=== PATIENT | male | born 1955 | race Caucasian/White ===

== ENCOUNTER 2024-01-25 13:10 | Emergency (ER) | payer MEDICARE ==
[2024-01-25 14:02] LABS: BASOPHILS ABSOLUTE AUTO 0.07 K/uL (0.00-0.10); EOSINOPHILS ABSOLUTE AUTO 0.26 K/uL (0.00-0.40); EOSINOPHILS PERCENT AUTO 3.6 % (0.0-5.4); HEMATOCRIT 23.5 % (38.4-49.7); HEMOGLOBIN 8.1 g/dL (12.9-16.9); IMMATURE GRAN ABSOLUTE AUTO 0.05 K/uL (0.00-0.23); IMMATURE GRAN PERCENT AUTO 0.7 % (0.0-0.7); LYMPHOCYTES ABSOLUTE AUTO 0.77 K/uL (0.8-3.3); LYMPHOCYTES PERCENT AUTO 10.5 % (11.4-47.7); MEAN CORPUSCULAR HEMOGLOBIN 29.9 pg (31.6-35.5); MEAN CORPUSCULAR HGB CONC 34.5 g/dL (31.6-35.5); MEAN CORPUSCULAR VOLUME 86.7 fL (81.4-99.0); MONOCYTES ABSOLUTE AUTO 0.52 K/uL (0.20-0.90); MONOCYTES PERCENT AUTO 7.1 % (3.3-12.6); NEUTROPHILS ABSOLUTE AUTO 5.64 K/uL (1.0-7.6); NEUTROPHILS PERCENT AUTO 77.1 % (40.0-78.1); PLATELET COUNT,PLT 173 K/uL (130-375); RED BLOOD CELL COUNT 2.71 M/uL (4.14-5.76); WHITE BLOOD CELL COUNT,WBC 7.3 K/uL (3.2-11.0)
[2024-01-25 14:23] LABS: A/G RATIO 0.8 (1.2-2.2); ALANINE AMINOTRANSFERASE,ALT 28 U/L (12-78); ALBUMIN 2.8 g/dL (3.4-5.0); ALKALINE PHOSPHATASE 72 U/L (46-116); ANION GAP 15.8 mmol/L (5.0-14.0); ASPARTATE AMNIOTRANSFERASE,AST 14 U/L (15-37); BILIRUBIN TOTAL 0.7 mg/dL (0.2-1.0); BLOOD UREA NITROGEN,BUN 22 mg/dL (7-18); CALCIUM 8.9 mg/dL (8.5-10.1); CARBON DIOXIDE,CO2 23 mmol/L (21-32); CHLORIDE,CL 101 mmol/L (100-108); ESTIMATED GFR 82 mL/min (>60); GLUCOSE RANDOM 174 mg/dL (74-106); POTASSIUM,K 3.8 mmol/L (3.6-5.2); PROTEIN TOTAL,TP 6.2 g/dL (6.4-8.2); SODIUM,NA 136 mmol/L (140-148)
[2024-01-25 14:28] LABS: LACTIC ACID 1.6 mmol/L (0.4-2.0)
[2024-01-25] MEDS: Pantoprazole 40 MG Vial IVPUSH ONE (14:39)
[2024-01-25] MEDS: Sodium Chloride 0.9% 10 ML Syringe FLUSH PRN (14:41)
== END 2024-01-25 15:00 ==
LOC: JP.ED 13:10
DX: K92.2 Gastrointestinal hemorrhage, unspecified (principal); E78.00 Pure hypercholesterolemia, unspecified; I10 Essential (primary) hypertension; E11.9 Type 2 diabetes mellitus without complications; Z90.49 Acquired absence of other specified parts of digestive tract; Z79.82 Long term (current) use of aspirin; Z79.84 Long term (current) use of oral hypoglycemic drugs; Z79.899 Other long term (current) drug therapy; Z88.6 Allergy status to analgesic agent
CPT/HCPCS: 36415; 80053; 83605; 85025; 87040; 96374; 99285; J2470; J3490

== ENCOUNTER 2025-01-08 11:33 | Inpatient (IN) | payer MEDICARE, OTHER ==
[2025-01-08 12:49] LABS: CREATININE 1.6 mg/dL (0.7-1.3); EST CRCL DRUG DOSING (CG) 49.24 mL/min; ESTIMATED GFR 46 mL/min (>60)
[2025-01-08 12:50] LABS: BASOPHILS ABSOLUTE AUTO 0.04 K/uL (0.00-0.10); BASOPHILS PERCENT AUTO 0.4 % (0.1-1.3); EOSINOPHILS ABSOLUTE AUTO 0.03 K/uL (0.00-0.40); EOSINOPHILS PERCENT AUTO 0.3 % (0.0-5.4); IMMATURE GRAN ABSOLUTE AUTO 0.25 K/uL (0.00-0.23); IMMATURE GRAN PERCENT AUTO 2.3 % (0.0-0.7); LYMPHOCYTES ABSOLUTE AUTO 0.61 K/uL (0.8-3.3); LYMPHOCYTES PERCENT AUTO 5.7 % (11.4-47.7); MONOCYTES ABSOLUTE AUTO 0.78 K/uL (0.20-0.90); MONOCYTES PERCENT AUTO 7.3 % (3.3-12.6); NEUTROPHILS ABSOLUTE AUTO 8.94 K/uL (1.0-7.6); NEUTROPHILS PERCENT AUTO 84.0 % (40.0-78.1); PLATELET COUNT,PLT 83 K/uL (130-375); RED BLOOD CELL COUNT 3.84 M/uL (4.14-5.76); WHITE BLOOD CELL COUNT,WBC 10.7 K/uL (3.2-11.0)
[2025-01-08 12:53] LABS: APPEARANCE,URINE SLIGHTLY CLOUDY (CLEAR); GLUCOSE,URINE NEGATIVE (NEGATIVE); OCCULT BLOOD,URINE LARGE (NEGATIVE)
[2025-01-08 13:11] LABS: A/G RATIO 0.9 (1.2-2.2); ALANINE AMINOTRANSFERASE,ALT 76 U/L (12-78); ASPARTATE AMNIOTRANSFERASE,AST 49 U/L (15-37); BILIRUBIN TOTAL 2.7 mg/dL (0.2-1.0); BLOOD UREA NITROGEN,BUN 22 mg/dL (7-18); CARBON DIOXIDE,CO2 22 mmol/L (21-32); CHLORIDE,CL 95 mmol/L (100-108); GLUCOSE RANDOM 188 mg/dL (74-106); POTASSIUM,K 4.1 mmol/L (3.6-5.2); PROTEIN TOTAL,TP 6.5 g/dL (6.4-8.2); SODIUM,NA 128 mmol/L (140-148)
[2025-01-08 13:16] LABS: SQUAMOUS EPITHELIAL CELLS,UR FEW /HPF; UROTHELIAL CELLS,URINE NOT SEEN /HPF
[2025-01-08] MEDS: Sodium Chloride 0.9% 10 ML Syringe FLUSH ONE (13:37)
[2025-01-08] MEDS: Iopamidol 612 MG/ML 100 ML Bottle IV ONE (14:35)
[2025-01-08] MEDS ORDERED: Magnesium Hydroxide 400 MG/5 ML Susp 30 ML Cup PO PRN (16:43)
[2025-01-08] MEDS ORDERED: Sennosides/Docusate Sodium 50-8.6 MG Tab PO PRN (16:43)
[2025-01-08] MEDS ORDERED: Naloxone 0.4 MG/ML SDV IVPUSH PRN (16:43)
[2025-01-08] MEDS ORDERED: Ondansetron 4 MG Tab.DIS PO PRN (16:43)
[2025-01-08] MEDS ORDERED: Ondansetron 4 MG/2 ML SDV IV PRN (16:43)
[2025-01-08] MEDS: Magnesium Sulfate 2 GM/50 mL 2 GM in Premix Bag 1 BAG IV SCH (18:21)
[2025-01-08] MEDS: Lactobacillus Rhamnosus GG (Probiotic) Cap PO SCH (20:14)
[2025-01-09] MEDS: Diltiazem 25 MG/5 ML SDV IVPUSH ONE ×2 (00:44→03:11)
[2025-01-09] MEDS: Ketorolac 15 MG/ML SDV IVPUSH ONE (00:53)
[2025-01-09 05:36] LABS: PLATELET COUNT,PLT 81.0 K/uL (130-375); RED BLOOD CELL COUNT 3.62 M/uL (4.14-5.76); WHITE BLOOD CELL COUNT,WBC 9.3 K/uL (3.2-11.0)
[2025-01-09 05:53] LABS: INR 1.7
[2025-01-09 05:59] LABS: A/G RATIO 0.8 (1.2-2.2); ALANINE AMINOTRANSFERASE,ALT 59 U/L (12-78); ASPARTATE AMNIOTRANSFERASE,AST 39 U/L (15-37); BILIRUBIN TOTAL 2.3 mg/dL (0.2-1.0); BLOOD UREA NITROGEN,BUN 24 mg/dL (7-18); CARBON DIOXIDE,CO2 22 mmol/L (21-32); CHLORIDE,CL 100 mmol/L (100-108); CREATININE 1.5 mg/dL (0.8-1.3); EST CRCL DRUG DOSING (CG) 52.53 mL/min; ESTIMATED GFR 50 mL/min (>60); GLUCOSE RANDOM 187 mg/dL (74-106); POTASSIUM,K 3.9 mmol/L (3.6-5.2); PROTEIN TOTAL,TP 5.6 g/dL (6.4-8.2); SODIUM,NA 130 mmol/L (140-148)
[2025-01-09] MEDS: Piperacillin/Tazobactam/Dext 4.5 GM in Premix Bag 1 BAG IV SCH (12:11)
[2025-01-09] MEDS: Benzocaine/Cetylpyridinium/Menthol Lozenge MUCMEM PRN (13:16)
[2025-01-09] MEDS ORDERED: Propofol 200 MG/20 ML SDV ONE (14:40)
[2025-01-09] MEDS ORDERED: Glucose Gel 15 GM in 37.5 GM Tube PO PRN (15:14)
[2025-01-09] MEDS ORDERED: 50% Dextrose in Water 50 ML Syringe IV PRN (15:14)
[2025-01-09 17:00] LABS: BODY FLUID TYPE OTH
[2025-01-09] MEDS: Insulin Lispro 100 Unit/ML 3 ML KwikPen SUBCUT SCH (17:01)
[2025-01-09] MEDS: Ketorolac 15 MG/ML SDV IVPUSH STA (21:12)
[2025-01-10 04:51] LABS: PLATELET COUNT,PLT 110.0 K/uL (130-375); RED BLOOD CELL COUNT 3.4 M/uL (4.14-5.76); WHITE BLOOD CELL COUNT,WBC 14.7 K/uL (3.2-11.0)
[2025-01-10 05:08] LABS: INR 1.7
[2025-01-10 05:14] LABS: A/G RATIO 0.7 (1.2-2.2); ALANINE AMINOTRANSFERASE,ALT 48 U/L (12-78); ASPARTATE AMNIOTRANSFERASE,AST 32 U/L (15-37); BILIRUBIN TOTAL 2.7 mg/dL (0.2-1.0); BLOOD UREA NITROGEN,BUN 33 mg/dL (7-18); CARBON DIOXIDE,CO2 20 mmol/L (21-32); CHLORIDE,CL 99 mmol/L (100-108); CREATININE 1.9 mg/dL (0.8-1.3); EST CRCL DRUG DOSING (CG) 41.47 mL/min; ESTIMATED GFR 38 mL/min (>60); GLUCOSE RANDOM 183 mg/dL (74-106); POTASSIUM,K 4.2 mmol/L (3.6-5.2); PROTEIN TOTAL,TP 5.4 g/dL (6.4-8.2); SODIUM,NA 129 mmol/L (140-148)
[2025-01-10 05:56] LABS: LACTIC ACID 2.3 mmol/L (0.4-2.0)
[2025-01-10] MEDS: Norepinephrine Bit/D5W Premix 4 MG/250 ML BAG IV SCH (07:14)
[2025-01-10] MEDS: Levofloxacin/Dextrose 5%-Water 750 MG in Premix Bag 1 BAG IV SCH (08:58)
[2025-01-10] MEDS: Iopamidol 755 Mg/ML 100 ML Bottle IV SCH (10:02)
[2025-01-10 12:52] LABS: APPEARANCE,URINE CLEAR (CLEAR); GLUCOSE,URINE NEGATIVE (NEGATIVE); OCCULT BLOOD,URINE NEGATIVE (NEGATIVE)
[2025-01-10 13:01] LABS: SQUAMOUS EPITHELIAL CELLS,UR RARE /HPF; UROTHELIAL CELLS,URINE NOT SEEN /HPF
[2025-01-11 05:48] LABS: PLATELET COUNT,PLT 142.0 K/uL (130-375); RED BLOOD CELL COUNT 3.61 M/uL (4.14-5.76); WHITE BLOOD CELL COUNT,WBC 12.7 K/uL (3.2-11.0)
[2025-01-11 06:11] LABS: A/G RATIO 0.6 (1.2-2.2); ALANINE AMINOTRANSFERASE,ALT 42 U/L (12-78); ASPARTATE AMNIOTRANSFERASE,AST 29 U/L (15-37); BILIRUBIN TOTAL 1.5 mg/dL (0.2-1.0); BLOOD UREA NITROGEN,BUN 25 mg/dL (7-18); CARBON DIOXIDE,CO2 20 mmol/L (21-32); CHLORIDE,CL 101 mmol/L (100-108); CREATININE 1.3 mg/dL (0.8-1.3); EST CRCL DRUG DOSING (CG) 60.61 mL/min; ESTIMATED GFR 59 mL/min (>60); GLUCOSE RANDOM 190 mg/dL (74-106); POTASSIUM,K 3.6 mmol/L (3.6-5.2); PROTEIN TOTAL,TP 5.7 g/dL (6.4-8.2); SODIUM,NA 131 mmol/L (140-148)
[2025-01-11] MEDS: Diltiazem 120 MG Cap.CD PO SCH (09:39)
[2025-01-11] MEDS: Levofloxacin/Dextrose 5%-Water 750 MG in Premix Bag 1 BAG IV SCH (09:41)
[2025-01-12 05:51] LABS: PLATELET COUNT,PLT 109.0 K/uL (130-375); RED BLOOD CELL COUNT 3.41 M/uL (4.14-5.76); WHITE BLOOD CELL COUNT,WBC 8.1 K/uL (3.2-11.0)
[2025-01-12 06:07] LABS: BLOOD UREA NITROGEN,BUN 28.0 mg/dL (7-18); CARBON DIOXIDE,CO2 22.0 mmol/L (21-32); CHLORIDE,CL 99.0 mmol/L (100-108); CREATININE 1.2 mg/dL (0.8-1.3); EST CRCL DRUG DOSING (CG) 65.66 mL/min; ESTIMATED GFR 65.0 mL/min (>60); GLUCOSE RANDOM 166.0 mg/dL (74-106); POTASSIUM,K 4.2 mmol/L (3.6-5.2); SODIUM,NA 128.0 mmol/L (140-148)
[2025-01-12] MEDS ORDERED: Propofol 200 MG/20 ML SDV ONE (14:09)
[2025-01-12] MEDS: Magnesium Sulfate 2 GM/50 mL 2 GM in Premix Bag 1 BAG IV ONE (23:01)
[2025-01-13 05:39] LABS: PLATELET COUNT,PLT 108.0 K/uL (130-375); RED BLOOD CELL COUNT 3.37 M/uL (4.14-5.76); WHITE BLOOD CELL COUNT,WBC 4.3 K/uL (3.2-11.0)
[2025-01-13 06:03] LABS: BLOOD UREA NITROGEN,BUN 20.0 mg/dL (7-18); CARBON DIOXIDE,CO2 23.0 mmol/L (21-32); CHLORIDE,CL 101.0 mmol/L (100-108); CREATININE 1.0 mg/dL (0.8-1.3); EST CRCL DRUG DOSING (CG) 78.79 mL/min; ESTIMATED GFR 81.0 mL/min (>60); GLUCOSE RANDOM 157.0 mg/dL (74-106); POTASSIUM,K 3.5 mmol/L (3.6-5.2); SODIUM,NA 133.0 mmol/L (140-148)
[2025-01-13] MEDS: Potassium Chloride 20 MEQ Tab.ER PO ONE ×2 (08:25→17:19)
[2025-01-13] MEDS: Furosemide 20 MG/2 ML VIAL IVPUSH ONE (09:02)
[2025-01-14 05:52] LABS: PLATELET COUNT,PLT 137.0 K/uL (130-375); RED BLOOD CELL COUNT 3.68 M/uL (4.14-5.76); WHITE BLOOD CELL COUNT,WBC 4.3 K/uL (3.2-11.0)
[2025-01-14 06:08] LABS: BLOOD UREA NITROGEN,BUN 17.0 mg/dL (7-18); CARBON DIOXIDE,CO2 25.0 mmol/L (21-32); CHLORIDE,CL 102.0 mmol/L (100-108); CREATININE 0.9 mg/dL (0.8-1.3); EST CRCL DRUG DOSING (CG) 87.13 mL/min; ESTIMATED GFR 92.0 mL/min (>60); GLUCOSE RANDOM 138.0 mg/dL (74-106); POTASSIUM,K 4.2 mmol/L (3.6-5.2); SODIUM,NA 134.0 mmol/L (140-148)
[2025-01-14] MEDS: Furosemide 20 MG/2 ML VIAL IVPUSH ONE (08:41)
[2025-01-15 06:20] LABS: BLOOD UREA NITROGEN,BUN 15.0 mg/dL (7-18); CARBON DIOXIDE,CO2 28.0 mmol/L (21-32); CHLORIDE,CL 102.0 mmol/L (100-108); CREATININE 0.9 mg/dL (0.8-1.3); EST CRCL DRUG DOSING (CG) 87.13 mL/min; ESTIMATED GFR 92.0 mL/min (>60); GLUCOSE RANDOM 132.0 mg/dL (74-106); POTASSIUM,K 4.1 mmol/L (3.6-5.2); SODIUM,NA 135.0 mmol/L (140-148)
[2025-01-15] MEDS ORDERED: Amiodarone 150 MG/3 ML SDV IVPUSH ONE (07:00)
== END 2025-01-15 11:27 | disposition home or self-care (01) | DRG 371 ==
LOC: JP.ED 11:33 → JP.MS 16:30 → JP.ICU 01-10 04:26
PROVIDERS: ADMIT Internal Medicine; ATTEND Hospitalist
PROC: 3E03329 Introduction of Other Anti-infective into Peripheral Vein, Percutaneous Approach (ICD-10-PCS; 2025-01-08)
PROC: 0D9W30Z Drainage of Peritoneum with Drainage Device, Percutaneous Approach (ICD-10-PCS; 2025-01-09)
PROC: 3E033XZ Introduction of Vasopressor into Peripheral Vein, Percutaneous Approach (ICD-10-PCS; principal; 2025-01-10)
DX: K65.1 Peritoneal abscess (principal); R18.8 Other ascites; I10 Essential (primary) hypertension; A41.51 Sepsis due to Escherichia coli [E. coli]; R65.21 Severe sepsis with septic shock; N39.0 Urinary tract infection, site not specified; N17.9 Acute kidney failure, unspecified; E87.1 Hypo-osmolality and hyponatremia; E87.20 Acidosis, unspecified; R63.0 Anorexia; E78.00 Pure hypercholesterolemia, unspecified; H91.90 Unspecified hearing loss, unspecified ear; H54.7 Unspecified visual loss; E11.9 Type 2 diabetes mellitus without complications; I48.91 Unspecified atrial fibrillation; K74.60 Unspecified cirrhosis of liver; E87.6 Hypokalemia; R79.89 Other specified abnormal findings of blood chemistry; Z85.46 Personal history of malignant neoplasm of prostate; Z90.49 Acquired absence of other specified parts of digestive tract; Z90.89 Acquired absence of other organs; Z98.890 Other specified postprocedural states; Z68.37 Body mass index [BMI] 37.0-37.9, adult; Z88.6 Allergy status to analgesic agent; Z79.1 Long term (current) use of non-steroidal anti-inflammatories (NSAID); Z79.84 Long term (current) use of oral hypoglycemic drugs; Z79.01 Long term (current) use of anticoagulants; Z79.899 Other long term (current) drug therapy; Z86.718 Personal history of other venous thrombosis and embolism
CPT/HCPCS: 00840-QZ; 36415; 49405; 49406; 49406-26; 71275; 71275-26; 74176; 74176-26; 74177; 74177-26; 77012; 77012-26; 80048; 80053; 80162; 80202; 81001; 82248; 82947; 83605; 83735; 84311; 84478; 84484; 85025; 85027; 85610; 86140; 87040; 87070; 87077; 87086; 87102; 87186; 87205; 87220; 93005; 93010; 93306; 96361; 96365; 99223; 99232; 99233; 99238; 99285; 99285-25; A9270-GY; C1729; C1769; J1160; J1163; J1650; J1885; J1938; J1956; J2003; J2543; J2704; J3373; J3430; J3475; J7030; J7040; J7050; Q9967

== ENCOUNTER 2025-01-26 07:20 | Day surgery (SDC) | payer MEDICARE, OTHER ==
[2025-01-26] MEDS: Sodium Chloride 0.9% 10 ML Syringe FLUSH ONE (08:27)
[2025-01-26] MEDS: Iopamidol 612 MG/ML 100 ML Bottle IV ONE (08:27)
== END 2025-01-26 10:14 | disposition home or self-care (01) ==
LOC: JP.SDS 07:20 → EDSTATUS 09:30 → JP.SDS 10:14
PROVIDERS: ATTEND Surgery
DX: K65.1 Peritoneal abscess (principal); B99.8 Other infectious disease; R18.8 Other ascites; K74.60 Unspecified cirrhosis of liver; I83.90 Asymptomatic varicose veins of unspecified lower extremity; M47.816 Spondylosis without myelopathy or radiculopathy, lumbar region; M16.0 Bilateral primary osteoarthritis of hip; R16.2 Hepatomegaly with splenomegaly, not elsewhere classified; R59.0 Localized enlarged lymph nodes; I70.0 Atherosclerosis of aorta; Z98.890 Other specified postprocedural states; Z90.79 Acquired absence of other genital organ(s)
CPT/HCPCS: 74177; J7030; Q9967